=== PATIENT | female | born 1955 | race Caucasian/White ===

== ENCOUNTER 2018-07-27 12:53 | Outpatient (CLI) | payer OTHER ==
--- NOTE | 2018-07-27 13:28 | ULT ---
VENOUS DOPPLER ULTRASOUND OF THE LEFT LOWER EXTREMITY: Date: 07/27/18 HISTORY: Left lower extremity edema. TECHNIQUE: Hoang scale ultrasound with color flow and spectral Doppler imaging of the deep venous systems of the left lower extremity was performed. FINDINGS: There is good flow, compression, and augmentation noted in the left common femoral, femoral, deep fem oral, popliteal, posterior tibial, and the saphenofemoral junction. IMPRESSION: No evidence of deep venous thrombosis in the left lower extremity. POS: OFF
== END 2018-07-27 12:54 | disposition home or self-care (01) ==
LOC: SCSULT 12:53
PROVIDERS: ATTEND Family Medicine
DX: M79.89 Other specified soft tissue disorders (principal)